=== PATIENT | female | born 1980 | race Caucasian/White ===

== ENCOUNTER 2016-04-29 13:41 | Outpatient (CLI) | payer BC, OTHER ==
[2016-04-29 14:45] VITALS: BP 136/84; PULSE 94; RESP 16; TEMP 97.4
== END 2016-04-29 14:45 | disposition home or self-care (01) ==
LOC: PROCWHC3 13:41
PROVIDERS: ATTEND Internal Medicine Infectious Disease
DX: N39.0 Urinary tract infection, site not specified (principal)
CPT/HCPCS: 87086; 99213

== ENCOUNTER → 2016-05-25 | Outpatient (CLI) | payer BC, OTHER ==
[2016-05-25 15:38] LABS: Rheumatoid Factor, Qnt 16 IU/mL (<12)
[2016-05-26 06:18] LABS: ANA w/Reflex to Titer POSITIVE (NEGATIVE)
[2016-05-27 07:52] LABS: Complement Total (CH50) 96 CAE (54-144)
== END | disposition home or self-care (01) ==
LOC: LABWHC1 11:48
PROVIDERS: ATTEND Internal Medicine Infectious Disease
DX: M06.9 Rheumatoid arthritis, unspecified (principal); R50.9 Fever, unspecified
CPT/HCPCS: 36415; 86038; 86039; 86160; 86162; 86431; 86658

== ENCOUNTER → 2016-05-26 | Outpatient (CLI) | payer BC, OTHER ==
[~2016-05-26] MED LIST: TUBERCULIN PPD (SKIN TEST) 5 UNIT/0.1 ML (MDV) VIAL INTRADERMA ONE
[2016-05-26 13:38] VITALS: BP 120/71; PULSE 72; RESP 16; TEMP 98.2
== END | disposition home or self-care (01) ==
LOC: PROCWHC3 13:11
PROVIDERS: ATTEND Internal Medicine Infectious Disease
DX: A18.4 Tuberculosis of skin and subcutaneous tissue (principal)
CPT/HCPCS: 86580

== ENCOUNTER → 2016-06-10 | Outpatient (CLI) | payer BC, OTHER ==
[2016-06-14 10:02] LABS: Mis test requested (Blood) Coxiella burnetii Ab
== END | disposition home or self-care (01) ==
LOC: LABWHC1 11:34
PROVIDERS: ATTEND Internal Medicine Infectious Disease
DX: A78 Q fever (principal)
CPT/HCPCS: 36415; 86638

== ENCOUNTER → 2018-10-23 | Outpatient (CLI) | payer OTHER ==
--- NOTE | 2018-10-24 07:32 | US ---
EXAMINATION TYPE: US pelvis complete transvag DATE OF EXAM: 10/23/2018 COMPARISON: NONE CLINICAL HISTORY: N92.1 Menometrorrhagia. painful cycles with bleeding between, Lupus, TECHNIQUE: TA/TV. Transabdominal sonographic images of the pelvis were acquired. Transvaginal sono graphic images also. Date of LMP: 10/13/2018 EXAM MEASUREMENTS: Uterus: 8.3 x 3.8 x 5.1 cm Endometrial Stripe: 0.9cm Right Ovary: 1.9 x 1.7 x 2.1cm Left Ovary: 2.7 x 2.2 x 2.2cm 1. 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 2. Endometrium: wnl 3. Right Ovary: wnl 4. Left Ovary: follicle under 1cm, physiologic 5. Bilateral Adnexa: wnl 6. Posterior cul-de-sac: wnl IMPRESSION: Unremarkable pelvic ultrasound.
== END | disposition home or self-care (01) ==
LOC: RADUSWWP 14:56
PROVIDERS: ATTEND Family Medicine
DX: N92.1 Excessive and frequent menstruation with irregular cycle (principal)
CPT/HCPCS: 76830; 76856

== ENCOUNTER → 2020-03-30 | Outpatient (CLI) | payer OTHER | END | disposition home or self-care (01) | LOC: RADUSWWP 08:13 | PROVIDERS: ATTEND Family Medicine | DX: Z53.9 Procedure and treatment not carried out, unspecified reason (principal) ==

== ENCOUNTER → 2020-08-13 | Outpatient (CLI) | payer OTHER ==
--- NOTE | 2020-08-14 09:36 | MM ---
Reason for exam: screening (asymptomatic). Baseline mammogram. History: Family history of breast cancer in maternal aunt at age 50. Took hormonal contraceptives for 3 years. Physical Findings: Nurse did not find any significant physical abnormalities on exam. MG 3D Diag Mammo W/Cad KAVITHA Bilateral CC and MLO view(s) were taken. The breast tissue is extremely dense which could obscure a lesion on mammography. These results were verbally communicated with the patient and result sheet given to the patient on 08/13/20. ASSESSMENT: Incomplete: need additional imaging evaluation, BI-RAD 0 RECOMMENDATION: Ultrasound of the right breast. (ultrasound scan of right focal breast pain)
--- NOTE | 2020-08-14 09:42 | USB ---
Reason for exam: additional evaluation requested from abnormal screening. History: Family history of breast cancer in maternal aunt at age 50. Took hormonal contraceptives for 3 years. US Breast Limited RT Right limited breast ultrasound including focal area of concern, retroareolar and axilla demonstrates no sonographic finding at right breast pain. These results were verbally communicated with the patient and result sheet given to the patient on 08/13/20. ASSESSMENT: Benign, BI-RAD 2 RECOMMENDATION: Routine screening mammogram of both breasts in 1 year. Manage on a clinical basis with regard to right breast pain.
== END | disposition home or self-care (01) ==
LOC: RADMAMWWP 14:16
PROVIDERS: ATTEND Obstetrics & Gynecology
DX: N64.59 Other signs and symptoms in breast (principal); Z80.3 Family history of malignant neoplasm of breast
CPT/HCPCS: 77062; 77066